=== PATIENT | female | born 1950 | race Caucasian/White ===

== ENCOUNTER → 2020-12-19 | Outpatient (CLI) | payer MEDICARE, OTHER ==
[~2020-12-19] MED LIST: BENADRYL25 MG PO; FLEXERIL 10 MG10 MG PO; K-DUR TAB 10 M10 MEQ PO; KEFLEX CAP 500500 MG PO; LASIX40 MG PO; LIPITOR TAB 2020 MG PO; LOPRESSOR 25 MG25 MG PO; NITROSTAT 0.425 TAB SL; NORVASC 5 MG TAB5 MG PO; PAXIL20 MG PO; PERCOCET 10-321 EACH PO; PROTONIX40 MG PO
== END ==
LOC: KOH-I 15:31
DX: M54.6 Pain in thoracic spine (principal); M54.5 Low back pain; M25.78 Osteophyte, vertebrae; M41.84 Other forms of scoliosis, thoracic region
CPT/HCPCS: 72070; 72110